=== PATIENT | female | born 1965 | race Caucasian/White ===

== ENCOUNTER 2021-06-02 10:07 | Day surgery (SDC) | payer OTHER ==
[~2021-06-02] VITALS: Ht 152.4 cm; Wt 68.6 kg
[2021-06-02] VITALS (16 sets, daily range): BP systolic 123–189; BP diastolic 64–106; PULSE 54–86; TEMP 97.8–98.5
[2021-06-02] MEDS ORDERED: PRINIVIL2.5 MG PO (10:42)
[2021-06-02] MEDS ORDERED: PEPCID 20MG TAB20 MG PO (10:42)
[2021-06-02] MEDS ORDERED: TOPROL XL 25MG25 MG PO (10:43)
[2021-06-02] MEDS ORDERED: ALLEGRA 180MG180 MG PO (10:43)
[2021-06-02] MEDS ORDERED: ASPIRIN E.C. 8181 MG PO (10:44)
[2021-06-02 10:57] LABS: HEMATOCRIT 39.9 % (37.0-47.0); HEMOGLOBIN 13.4 g/dl (12.5-16.0); MEAN CELL VOLUME 86 fl (80.0-100.0); MEAN CORPUSCULAR HEMOGLOBIN 29 pg (27-31); MEAN CORPUSCULAR HGB CONC 34 g/dl (33.0-37.0); MEAN PLATELET VOLUME 9.9 fl (7.4-10.4); PLATELET COUNT 247 K/mm3 (130-400); RED BLOOD COUNT 4.64 M/mm3 (4.10-5.30); REDCELL DISTRIBUTION WIDTH-CV 12.5 % (11.5-14.5)
[2021-06-02 11:03] LABS: PROTHROMBIN TIME 11.4 SECONDS (9.7-12.8)
[2021-06-02 11:06] LABS: PARTIAL THROMBOPLASTIN TIME 39.7 SECONDS (26.0-37.0)
[2021-06-02 11:21] LABS: CALCIUM 9.6 mg/dL (8.4-10.2); CREATININE, serum 0.82 mg/dL (0.57-1.11); POTASSIUM 3.9 mmol/L (3.5-4.5)
--- NOTE | 2021-06-02 12:13 | NUR ---
SEE MERGE FOR ALL MEDICATION ADMINISTRATION TIMES/DOSAGES AND INTRA/POST PROCEDURE SEDATION ASSESSMENTS.
--- NOTE | 2021-06-02 20:19 | NUR ---
Patient assessed at this time. Alert and oriented x 4, and able to make needs known. Denies pain and discomfort. IV fluids running per orders. R radial heart cath site, bandaid CDI. HRR. Telemetry in place. Denies SOB and dyspena. LS CTA. Voices no questions, needs, or concerns at this time. In bed with call light within reach.
[2021-06-03 03:44] VITALS: BP 127/70; PULSE 55; TEMP 97.9
--- NOTE | 2021-06-03 05:03 | NUR ---
Patient has not voiced any complaints of pain or discomfort. Completed 1 L of IV fluids per orders. Voices no questions, needs, or concerns at this time. In bed with call light within reach.
[2021-06-03 06:52] LABS: BASO % 0.5 % (0.0-2.0); EOS # 0.2 K/mm3 (0.0-0.7); EOS % 2.8 % (0.0-4.0); GRAN # 4.1 K/mm3 (1.4-6.5); GRAN % 66.7 % (42.2-75.2); HEMATOCRIT 38.3 % (37.0-47.0); HEMOGLOBIN 12.9 g/dl (12.5-16.0); LYMPH # 1.4 K/mm3 (1.2-3.4); LYMPH % 22.4 % (20.0-51.0); MEAN CELL VOLUME 86 fl (80.0-100.0); MEAN CORPUSCULAR HEMOGLOBIN 29 pg (27-31); MEAN CORPUSCULAR HGB CONC 34 g/dl (33.0-37.0); MEAN PLATELET VOLUME 10.3 fl (7.4-10.4); MONO # 0.5 K/mm3 (0.1-0.6); MONO % 7.3 % (1.7-9.3); PLATELET COUNT 233 K/mm3 (130-400); RED BLOOD COUNT 4.44 M/mm3 (4.10-5.30); REDCELL DISTRIBUTION WIDTH-CV 12.3 % (11.5-14.5)
[2021-06-03 07:15] VITALS: BP 123/65; PULSE 62; TEMP 97.8
[2021-06-03 07:30] LABS: CALCIUM 9.1 mg/dL (8.4-10.2); CREATININE, serum 0.79 mg/dL (0.57-1.11); POTASSIUM 3.9 mmol/L (3.5-4.5)
--- NOTE | 2021-06-03 08:00 | NUR ---
PT PLEASANT, AOX4, REPORTING DISCOMFORT WITH R RADIAL SITE, SITE SOFT TO TOUCH, PT ASSESSMENT PERFORMED, NO QUESTIONS AT THIS TIME
--- NOTE | 2021-06-03 08:03 | NUR ---
Shift assessment completed. Patient sitting up in bed. Alert and oriented x4. no c/o of pain. Rt forearm INT no redness, warmth. Pt ambulating and voiding without difficulty. call light within reach. Pt resting in room.
--- NOTE | 2021-06-03 11:16 | NUR ---
floor worker well service met with patient to discuss discharge plan. Patient lives at home with her Francisco ([phone]). Francisco present at bedside. Patient is independent with her ADL's and does not utilize any DME to assist with mobility at home. Patient has no oxygen needs at home. PCP is Dr. Jessica Arthur and she utilizes [facility] for parts counterman medications/ [facility] for short term medications. Patient reports that she does have a [employer] established listing her Francisco as her agent. Patient is planning on returning back home with spouse upon discharge. Discharge plan: Home with spouse
[2021-06-03 12:13] VITALS: BP 129/60; PULSE 65; TEMP 98.2
[2021-06-03] MEDS ORDERED: BRILINTA90 MG PO (12:36)
[2021-06-03] MEDS ORDERED: LIPITOR 80MG80 MG PO (12:37)
[2021-06-03 13:16] VITALS: BP 147/68; PULSE 80
--- NOTE | 2021-06-03 13:21 | NUR ---
PT WOKEN FROM [facility], DISCHARGE EDUCATION PROVIDED, TELE REMOVED, IV REMOVED, PT SAT UP TO SIGN DISCHARGE PAPERWORK AND REPORTED DIZZINESS AND "FEELS LIKE MY HEART IS RACING". VITALS OBTAINED AND RECORDERED, BP ELEVATED FROM BASELINE, EPISODE RESOLVED AFTER 2 MINUTES. CHENG EDUCATION PROFESSIONAL NOTIFIED, WILL CHECK ON DISCHARGE STATUS. LIZBETH PRUETT CALLED BACK AND REPORTED DR. BEATTY "WAS NOT THAT CONCERNED, SHE CAN GO IF SYMPTOMS ARE RESOLVED". EDUCATED PT
--- NOTE | 2021-06-03 13:50 | NUR ---
Primary nurse was assisted with [id number] patient care by [facility] Meera Cast and [facility] instructor Emilia Cheatham MSN, RN.
--- NOTE | 2021-06-03 14:01 | NUR ---
WHEN TAKING PT DOWN IN WHEELCHAIR PT REPORTING DIZZINESS WHEN STANDING UP TO GET DRESSED IN ROOM, PT DENIES ROOM SPINNING JUST FEELS SLIGHTLY LIGHT HEADED, PT INSISTANT ON DISCHARGING, PT ASSISTED INTO CAR WITH NO PROBLEMS, LIZBETH RESAW FEEDER NOTIFIED, NO NEW ORDERS.
== END 2021-06-03 14:03 | disposition home or self-care (01) ==
LOC: MEDICAL 10:07 → COL.CAR 10:07 → MEDICAL 13:23 → COL.CAR 06-03 14:03
PROVIDERS: Internal Medicine Cardiovascular Disease
DX: I25.10 Atherosclerotic heart disease of native coronary artery without angina pectoris (principal); R94.39 Abnormal result of other cardiovascular function study; Z95.5 Presence of coronary angioplasty implant and graft
CPT/HCPCS: OP; C1769; C1874; C1887; C9600; J0583; J1644; J2250; J3010; Q9967

== ENCOUNTER 2021-07-20 12:07 | Outpatient (RCR) | payer OTHER ==
[~2021-07-20 12:07] MED LIST: ALLEGRA 180MG180 MG PO; ASPIRIN E.C. 8181 MG PO; BRILINTA90 MG PO; LIPITOR 80MG80 MG PO; PEPCID 20MG TAB20 MG PO; PRINIVIL2.5 MG PO; TOPROL XL 25MG25 MG PO
== END 2021-07-30 | disposition home or self-care (01) ==
LOC: COL.CR
DX: Z48.812 Encounter for surgical aftercare following surgery on the circulatory system (principal); Z95.5 Presence of coronary angioplasty implant and graft

== ENCOUNTER 2021-08-01 14:59 | Outpatient (RCR) | payer OTHER | END 2021-08-30 | LOC: COL.CR | DX: Z29.8 Encounter for other specified prophylactic measures (principal) ==